=== PATIENT | female | born 1945 | race Caucasian/White ===

== ENCOUNTER 2017-12-29 10:03 | Emergency (ER) | payer OTHER ==
[2017-12-29 10:06] VITALS: Ht 165.1 cm
[2017-12-29 11:11] LABS: PLATELET COUNT 293 x10^3mcL (130-400); RED CELL DISTRIBUTION WIDTH 14.5 % (11.5-14.5)
[2017-12-29 11:18] LABS: CALCIUM 8.9 mg/dL (8.5-10.1); CARBON DIOXIDE 30.1 mmol/L (21-32); CHLORIDE SERUM 104 mmol/L (98-107); CREATININE SERUM 0.9 mg/dL (0.6-1.0); GLUCOSE SERUM 103 mg/dL (74-106); POTASSIUM SERUM 3.6 mmol/L (3.5-5.1); SODIUM SERUM 142 mmol/L (136-145)
[2017-12-29 11:23] LABS: ALKALINE PHOSPHATASE 623 U/L (46-116); ALT/SGPT 76 U/L (14-59); AST/SGOT 163 U/L (15-37); BILIRUBIN TOTAL 1.26 mg/dL (0.20-1.00)
[2017-12-29 11:26] LABS: ALBUMIN 2.4 g/dL (3.4-5.0)
[2017-12-29 12:01] LABS: ATYPICAL LYMPH 3 %; BAND NEUTROPHIL 1 % (0-10); BASOPHIL 0 % (0-2); MONOCYTE 5 % (0-7); SEGMENTED NEUTROPHILS 74 % (37-75)
[2017-12-29 12:02] LABS: PLATELET MORPHOLOGY PLATELETS NORMAL
[2017-12-29 12:14] LABS: rbc morphology (normal/abnorm) NORMAL (NORMAL)
[2017-12-29 14:47] LABS: microscopic required? NO
[2017-12-29 14:53] LABS: UA SPECIFIC GRAVITY <=1.005 (1.005-1.035); urine erythrocyte NEGATIVE (NEGATIVE)
[2017-12-29 15:58] VITALS: BP 113/68
== END 2017-12-29 15:58 | disposition home or self-care (01) ==
LOC: ED 10:03
PROVIDERS: Emergency Medicine
PROC: 3E033NZ Introduction of Analgesics, Hypnotics, Sedatives into Peripheral Vein, Percutaneous Approach (ICD-10-PCS; principal; 2017-12-29)
PROC: 3E033GC Introduction of Other Therapeutic Substance into Peripheral Vein, Percutaneous Approach (ICD-10-PCS; 2017-12-29)
PROC: BW211ZZ Computerized Tomography (CT Scan) of Abdomen and Pelvis using Low Osmolar Contrast (ICD-10-PCS; 2017-12-29)
DX: T85.618A Breakdown (mechanical) of other specified internal prosthetic devices, implants and grafts, initial encounter (principal); R10.9 Unspecified abdominal pain; E86.0 Dehydration; C25.9 Malignant neoplasm of pancreas, unspecified; I10 Essential (primary) hypertension; K76.9 Liver disease, unspecified
CPT/HCPCS: J2270; J2405; J7030; Q0092; Q9966; Q9967

== ENCOUNTER 2017-12-30 17:20 | Emergency (ER) | payer OTHER ==
[~2017-12-30] VITALS: Ht 165.1 cm; Wt 71.2 kg
[2017-12-30 17:23] VITALS: Ht 165.1 cm; Wt 71.2 kg
[2017-12-30 20:09] VITALS: BP 116/77
== END 2017-12-30 20:09 | disposition home or self-care (01) ==
LOC: ED 17:20
DX: C25.9 Malignant neoplasm of pancreas, unspecified (principal); A49.9 Bacterial infection, unspecified; D72.829 Elevated white blood cell count, unspecified; R79.89 Other specified abnormal findings of blood chemistry; I10 Essential (primary) hypertension; K21.9 Gastro-esophageal reflux disease without esophagitis; Z88.2 Allergy status to sulfonamides; Z88.1 Allergy status to other antibiotic agents

== ENCOUNTER 2018-01-01 11:57 | Emergency (ER) | payer OTHER ==
[~2018-01-01] VITALS: Ht 165.1 cm; Wt 71.7 kg
[2018-01-01 12:07] VITALS: Ht 165.1 cm; Wt 71.7 kg
[2018-01-01 12:30] LABS: BASOPHIL % 0.3 % (0-2); PLATELET COUNT 272 x10^3mcL (130-400); RED CELL DISTRIBUTION WIDTH 14.5 % (11.5-14.5)
[2018-01-01 12:40] LABS: CALCIUM 8.1 mg/dL (8.5-10.1); CARBON DIOXIDE 31.8 mmol/L (21-32); CHLORIDE SERUM 103 mmol/L (98-107); CREATININE SERUM 0.8 mg/dL (0.6-1.0); GLUCOSE SERUM 108 mg/dL (74-106); POTASSIUM SERUM 3.7 mmol/L (3.5-5.1); SODIUM SERUM 139 mmol/L (136-145)
[2018-01-01 12:45] LABS: ALKALINE PHOSPHATASE 363 U/L (46-116); ALT/SGPT 37 U/L (14-59); AST/SGOT 44 U/L (15-37); BILIRUBIN TOTAL 0.75 mg/dL (0.20-1.00); TOTAL PROTEIN, SERUM 6.9 g/dL (6.4-8.2)
[2018-01-01 12:49] LABS: ALBUMIN 1.8 g/dL (3.4-5.0)
[2018-01-01 15:55] VITALS: BP 130/78
== END 2018-01-01 15:55 | disposition left against medical advice (07) ==
LOC: ED 11:57 → MU 13:31 → ED 15:55
PROVIDERS: Emergency Medicine
DX: D01.7 Carcinoma in situ of other specified digestive organs (principal); I10 Essential (primary) hypertension; K21.9 Gastro-esophageal reflux disease without esophagitis; Z90.710 Acquired absence of both cervix and uterus; Z90.49 Acquired absence of other specified parts of digestive tract; Z98.890 Other specified postprocedural states; Z88.2 Allergy status to sulfonamides; Z88.1 Allergy status to other antibiotic agents; Z88.8 Allergy status to other drugs, medicaments and biological substances
CPT/HCPCS: 83880; J0696; J3010; J7030